=== PATIENT | male | born 1975 | race Caucasian/White ===

== ENCOUNTER 2020-01-20 10:33 | Inpatient (IN) | payer BC ==
[~2020-01-20] VITALS: Ht 167.6 cm; Wt 102.8 kg
[2020-01-20] VITALS (7 sets, daily range): BP systolic 97–135; BP diastolic 60–80
[2020-01-20] MEDS ORDERED: ETOMIDATE 20 MG/10 ML ONE (10:44)
[2020-01-20] MEDS ORDERED: SUCCINYLCHOLINE 20 MG/ML, 10ML ONE (10:44)
[2020-01-20] MEDS ORDERED: PROPOFOL 10 MG/ML, 100ML IV ONE (10:44)
--- NOTE | 2020-01-20 11:15 | NUR ---
PT BIB EMS FROM [place] FOR ALTERED MENTAL STATUS, JAUNDICE AND WEAKNESS. PT CHECKED INTO HOSPITAL IN [place] [facility], LEFT AMA THIS MORNING, WHEN HE GOT HOME HIS ROOMATE IMMEDIATELY TOOK HIM BACK TO THE ER BECAUSE HAS ALTERED. PT ARRIVED AND HE GOES BETWEEN A0X2 - AOX4. HE WILL SEEM TO BE MAKING SENSE WITH HIS CONVERSATION BUT THEN HE WILL GO OFF ON A TANGEANT -"I WAS WRESTLING LAST NIGHT AND I SAW THE SURGEON PUT THEM IN WRONG, WE WERE AT THE SCOOL" MD BEDSIDE FOR ASSESSMENT. EKG COMPLETE.
[2020-01-20] MEDS ORDERED: LORazepam 2 MG/ML, 1ML ONE ×2 (11:27→12:10)
[2020-01-20] MEDS ORDERED: LORazepam 2 MG/ML, 1ML IVPush ONE ×2 (11:30→12:30)
--- NOTE | 2020-01-20 11:48 | NUR ---
PT HAS TRIED TO CLIMB OUT OF BED 2-3 TIMES. MOTHER IS UNABLE TO STOP HIM. MD NOTIFIED. SEE MAR FOR INTERVENTIONS
[2020-01-20 12:05] LABS: MEAN CORPUSCULAR HEMOGLOBIN 36.5 pg (27.5-34.5); MEAN CORPUSCULAR HGB CONC 34.7 g/dL (33.2-36.2); MEAN PLATELET VOLUME 8.5 fL (7.4-10.4); PLATELET COUNT 81 x10^3/uL (130-400); RED BLOOD COUNT 2.08 x10^6/uL (4.38-5.82); RED CELL DISTRIBUTION WIDTH 23.4 % (9.4-14.8)
[2020-01-20 12:17] LABS: INTERNATIONAL NORMALIZED RATIO 2.02 (0.93-1.1); PROTHROMBIN TIME 21.3 Seconds (9.6-11.5)
[2020-01-20] MEDS ORDERED: HALOPERIDOL 5 MG/ML ONE ×2 (12:17→13:59)
[2020-01-20 12:18] LABS: ALBUMIN 3.5 g/dL (3.4-5.0); ANION GAP 8 mmol/L (5-15); CALCIUM 8.7 mg/dL (8.5-10.1); CHLORIDE 106 mmol/L (98-107)
--- NOTE | 2020-01-20 12:21 | NUR ---
PT AGITATED. 2 RNS TO HOLD HIM DOWN. NOTIFED. PT MEDICATED PER MAR
[2020-01-20 12:22] LABS: ALANINE AMINOTRANSFERASE 27 U/L (12-78); ALKALINE PHOSPHATASE 76 U/L (45-117)
[2020-01-20] MEDS ORDERED: HALOPERIDOL 5 MG/ML IM ONE (12:30)
[2020-01-20 12:41] LABS: MD YES
[2020-01-20 12:44] LABS: BAND#(MANUAL) 0.11 x10^3/uL; BANDS%(MANUAL) 2 % (0-7); BASOS#(MANUAL) 0.06 x10^3/uL (0-0.1); BASOS% (MANUAL) 1 % (0-1); EOS#(MANUAL) 0.06 x10^3/uL (0.0-0.4); EOS% (MANUAL) 1 % (1-7); LYMPH#(MANUAL) 1.25 x10^3/uL (1-3.4); LYMPHS% (MANUAL) 22 % (22-44); MONOS#(MANUAL) 0.57 x10^3/uL (0.3-2.7); MONOS% (MANUAL) 10 % (2-9); SEG#(MANUAL) 3.65 x10^3/uL (1.8-6.8); SEGS% (MANUAL) 64 % (42-75)
[2020-01-20 12:46] LABS: ANISOCYTOSIS 1+; HYPOCHROMIA 1+; POLYCHROMASIA 1+
[2020-01-20 12:49] LABS: BILIRUBIN,TOTAL 22.2 mg/dL (0.2-1.0)
--- NOTE | 2020-01-20 12:50 | NUR ---
PT TO GET BLOOD TRANSFUSION. PT RECEIVED 3 UNITS OF BLOOD 3 DAYS AGO IN [facility].
[2020-01-20 12:51] LABS: <PLATELET ESTIMATE> DECREASED; <PLT MORPHOLOGY> NORMAL PLT MORPH
[2020-01-20 13:08] LABS: CREATININE 0.84 mg/dL (0.7-1.3); TOTAL PROTEIN 6.5 g/dL (6.4-8.2)
--- NOTE | 2020-01-20 13:18 | NUR ---
BLOOD SLIP SENT TO [facility].
--- NOTE | 2020-01-20 13:18 | NUR ---
REPORT GIVEN TO STACY HORTA. SPOKE TO ABOUT POSSIBLE SEPSIS WORKUP. MD SAID NOT AT THIS MOMENT
--- NOTE | 2020-01-20 13:28 | NUR ---
PT TO CT AT THIS TIME, BLOOD RETURNED TO BB. WILL SEND NEW REQUEST WHEN PT RETURNS
--- NOTE | 2020-01-20 13:35 | NUR ---
break RN note: report taken from primary RN Maggie for meal break, pt in CT scan at this time.
--- NOTE | 2020-01-20 13:46 | NUR ---
pt back from CT, agitated. pt awake and alert, speech clear, pt redirectable at this time. all monitors in place.
--- NOTE | 2020-01-20 13:47 | NUR ---
blood requested from blood bank.
[2020-01-20] MEDS ORDERED: HALOPERIDOL 5 MG/ML IV ONE (14:00)
[2020-01-20] MEDS ORDERED: OMNIPAQUE 350 MG/ML, 100ML BOTTLE ONE (14:00)
--- NOTE | 2020-01-20 14:13 | NUR ---
REPORT FROM PAOLA RN, VERIFIED FIRST UNIT OF BLOOD, TRANSFUSION BEGAN. ERMD IN TO EVAL PT, PLAN TO INTUBATE. LAB ANALYST MADE AWARE
--- NOTE | 2020-01-20 14:19 | NUR ---
UPON PT RETURN FROM CT, PT AGITATED, PULLING AT LINES AND ATTEMPTING TO GET OUT OF BED. KOLE LOBO NOTIFIED, ORDER RECEIVED FOR HALDOL 5MG IV PUSH. HALDOL ADMIN VIA SLOW PUSH, PT REMAINS AGITATED AND PULLING AT LINES. ORDER RECEIVED FOR SOFT RESTRAINTS X 2 WHICH WERE APPLIED WITH SECURITY ASSIST. BLOOD RECEIVED FROM BLOOD BANK AND INITIATED, SIGNED OFF WITH STACY HORTA. KOLE LOBO AT BEDSIDE SHORTLY AFTER BLOOD TRANSFUSION INIATED, RECOMMENDS INTUBATION D/T COMPLEX MEDICAL STATE AND NECESSITY FOR NUMEROUS SEDATIVE MEDICATIONS. PT AWAKE, ALERT, RESPS EVEN AND UNLABORED, STILL AGITATED. PT'S MOTHER AT BEDSIDE, AGREEING TO PLAN OF CARE. PT MOVED TO TRAUMA 3, REPORT TO STACY BRADLEY WHO IS ASSUMING CARE.
--- NOTE | 2020-01-20 14:21 | NUR ---
PT TO TR 3 AT THIS TIME, REPORT TO MIRNA KUMAR
[2020-01-20] MEDS ORDERED: FENTANYL PF 100 MCG/2ML ONE (14:23)
[2020-01-20] MEDS ORDERED: FENTANYL PF 100 MCG/2ML IV ONE (14:30)
[2020-01-20] MEDS ORDERED: PANTOPRAZOLE 80 MG in SODIUM CHLORIDE 0.9% 100 ML IV SCH (14:30)
[2020-01-20] MEDS ORDERED: SUCCINYLCHOLINE 20 MG/ML, 10ML IVPush ONE (14:30)
[2020-01-20] MEDS ORDERED: PANTOPRAZOLE 80 MG in SODIUM CHLORIDE 0.9% 50 ML IVPB ONE (14:30)
[2020-01-20] MEDS ORDERED: PROPOFOL 100 ML IV PRN (14:30)
[2020-01-20] MEDS ORDERED: ETOMIDATE 20 MG/10 ML IV ONE (14:30)
[2020-01-20] MEDS ORDERED: THIAMINE 200 MG in SODIUM CHLORIDE 0.9% 50 ML IV ONE (14:30)
[2020-01-20] MEDS ORDERED: CEFTRIAXONE PMX 2GM/50ML 50 ML IVPB SCH (14:30)
[2020-01-20] MEDS ORDERED: MAGNESIUM SULFATE PMX 4GM/100M 100 ML IVPB ONE ×2 (15:00→17:00)
[2020-01-20] MEDS ORDERED: OCTREOTIDE 100MCG/ML, 1ML (0.1MG/ML) IV ONE (15:00)
[2020-01-20] MEDS ORDERED: BISACODYL 10 MG SUPP PR PRN (15:00)
[2020-01-20] MEDS ORDERED: MIDAZOLAM HCL 50 MG in SODIUM CHLORIDE 0.9% 40 ML IV PRN (15:00)
[2020-01-20] MEDS ORDERED: PHYTONADIONE 10 MG in SODIUM CHLORIDE 0.9% 50 ML IV ONE (15:00)
[2020-01-20] MEDS ORDERED: OCTREOTIDE 500 MCG in SODIUM CHLORIDE 0.9% 99 ML IV PRN (15:00)
[2020-01-20] MEDS ORDERED: POLYETHYLENE GLYCOL 17 GM PACKET PO PRN (15:00)
[2020-01-20] MEDS ORDERED: OXYcodone IR 5MG TABLET PO PRN (15:00)
[2020-01-20] MEDS ORDERED: ONDANSETRON 2MG/ML, 2ML IVPush PRN (15:00)
[2020-01-20] MEDS ORDERED: NOREPINEPHRINE 8 MG in SODIUM CHLORIDE 0.9% 242 ML IV PRN (15:00)
--- NOTE | 2020-01-20 15:33 | NUR ---
[facility] TELEPHONE HAND-OFF REPORT GIVEN TO STACY SHEARER.
[2020-01-20] MEDS: PROPOFOL 100 ML IV PRN ×2 (17:09→20:18)
[2020-01-20 17:25] LABS: BILIRUBIN, DIRECT 7.7 mg/dL (0.1-0.2)
[2020-01-20 17:28] LABS: BILIRUBIN,INDIRECT 13.6 mg/dL (0.0-2.0)
[2020-01-20 17:36] LABS: BILIRUBIN,TOTAL 21.3 mg/dL (0.2-1.0)
[2020-01-20] MEDS: CEFTRIAXONE PMX 1GM/50ML 50 ML IV SCH (17:43)
[2020-01-20] MEDS: PANTOPRAZOLE 80 MG in SODIUM CHLORIDE 0.9% 100 ML IV SCH (17:44)
[2020-01-20] MEDS: OCTREOTIDE 500 MCG in SODIUM CHLORIDE 0.9% 99 ML IV PRN (17:52)
[2020-01-20 20:48] LABS: BASOPHILS % (AUTO) 1 % (0-1); EOSINOPHILS % (AUTO) 1 % (1-7); LYMPHOCYTES % (AUTO) 25 % (22-44); MEAN CORPUSCULAR HGB CONC 34.9 g/dL (33.2-36.2); MEAN PLATELET VOLUME 8.9 fL (7.4-10.4); MONOCYTES % (AUTO) 22 % (2-9); NEUTROPHILS % (AUTO) 51 % (42-75); PLATELET COUNT 61 x10^3/uL (130-400); RED BLOOD COUNT 2.27 x10^6/uL (4.38-5.82); RED CELL DISTRIBUTION WIDTH 22.9 % (9.4-14.8)
[2020-01-20 20:55] LABS: MD NO
[2020-01-20] MEDS: LORazepam 2 MG/ML, 1ML IVPush PRN (21:04)
[2020-01-21] VITALS (8 sets, daily range): BP systolic 86–138; BP diastolic 52–92
[2020-01-21] MEDS: PROPOFOL 100 ML IV PRN ×6 (00:13→23:36)
[2020-01-21] MEDS: PANTOPRAZOLE 80 MG in SODIUM CHLORIDE 0.9% 100 ML IV SCH ×3 (03:09→23:37)
[2020-01-21] MEDS: OCTREOTIDE 500 MCG in SODIUM CHLORIDE 0.9% 99 ML IV PRN ×3 (03:09→23:37)
[2020-01-21] MEDS: LORazepam 2 MG/ML, 1ML IVPush PRN (04:32)
[2020-01-21 05:04] LABS: BASOPHILS % (AUTO) 1 % (0-1); EOSINOPHILS % (AUTO) 1 % (1-7); LYMPHOCYTES % (AUTO) 18 % (22-44); MEAN CORPUSCULAR HEMOGLOBIN 36.5 pg (27.5-34.5); MEAN CORPUSCULAR HGB CONC 35.8 g/dL (33.2-36.2); MEAN PLATELET VOLUME 8.9 fL (7.4-10.4); MONOCYTES % (AUTO) 15 % (2-9); NEUTROPHILS % (AUTO) 64 % (42-75); PLATELET COUNT 81 x10^3/uL (130-400); RED BLOOD COUNT 2.38 x10^6/uL (4.38-5.82); RED CELL DISTRIBUTION WIDTH 22.7 % (9.4-14.8)
[2020-01-21 05:08] LABS: MD NO
[2020-01-21 05:14] LABS: INTERNATIONAL NORMALIZED RATIO 1.72 (0.93-1.1); PROTHROMBIN TIME 18.1 Seconds (9.6-11.5)
[2020-01-21 05:15] LABS: ANION GAP 7 mmol/L (5-15); CALCIUM 8.1 mg/dL (8.5-10.1); CHLORIDE 107 mmol/L (98-107)
[2020-01-21 05:27] LABS: ALKALINE PHOSPHATASE 76 U/L (45-117)
[2020-01-21 06:39] LABS: ALANINE AMINOTRANSFERASE 27 U/L (12-78); CREATININE 0.87 mg/dL (0.7-1.3)
[2020-01-21 06:40] LABS: TOTAL PROTEIN 6.1 g/dL (6.4-8.2)
[2020-01-21 06:42] LABS: BILIRUBIN,TOTAL 23.1 mg/dL (0.2-1.0)
[2020-01-21] MEDS: SENNA/DOCUSATE TABLET PO SCH (10:11)
[2020-01-21] MEDS: morphine SULFATE 10 MG/ML, 1ML IVPush PRN (14:20)
[2020-01-21] MEDS: CEFTRIAXONE PMX 1GM/50ML 50 ML IV SCH (14:47)
--- NOTE | 2020-01-21 15:08 | NUR ---
TF GOAL when ordered: w/ propofol: VITAL AF 1.2 @ 50ml/hr off propofol: VITAL AF 1.2 @ 55ML/HR
[2020-01-22] MEDS: PROPOFOL 100 ML IV PRN ×5 (02:23→23:48)
[2020-01-22 04:00] VITALS: BP 101/48
[2020-01-22 05:51] LABS: CHLORIDE 109 mmol/L (98-107)
[2020-01-22 05:56] LABS: ANION GAP 5 mmol/L (5-15); CALCIUM 7.7 mg/dL (8.5-10.1)
[2020-01-22] MEDS: morphine SULFATE 10 MG/ML, 1ML IVPush PRN (05:58)
[2020-01-22 06:00] LABS: INTERNATIONAL NORMALIZED RATIO 1.87 (0.93-1.1); PROTHROMBIN TIME 19.7 Seconds (9.6-11.5)
[2020-01-22 06:09] LABS: BASOPHILS % (AUTO) 1 % (0-1); EOSINOPHILS % (AUTO) 3 % (1-7); LYMPHOCYTES % (AUTO) 18 % (22-44); MEAN CORPUSCULAR HEMOGLOBIN 36.5 pg (27.5-34.5); MEAN CORPUSCULAR HGB CONC 35.2 g/dL (33.2-36.2); MEAN PLATELET VOLUME 8.2 fL (7.4-10.4); MONOCYTES % (AUTO) 18 % (2-9); NEUTROPHILS % (AUTO) 60 % (42-75); PLATELET COUNT 55 x10^3/uL (130-400); RED BLOOD COUNT 2.19 x10^6/uL (4.38-5.82); RED CELL DISTRIBUTION WIDTH 24.5 % (9.4-14.8)
[2020-01-22] MEDS ORDERED: MAGNESIUM SULFATE PMX 2GM/50ML 50 ML IV ONE (07:00)
[2020-01-22] MEDS: PANTOPRAZOLE 80 MG in SODIUM CHLORIDE 0.9% 100 ML IV SCH (07:19)
[2020-01-22] MEDS: OCTREOTIDE 500 MCG in SODIUM CHLORIDE 0.9% 99 ML IV PRN (07:20)
[2020-01-22 07:23] LABS: MD SCAN
[2020-01-22 07:47] LABS: ALBUMIN 2.6 g/dL (3.4-5.0); ANION GAP 4 mmol/L (5-15); CALCIUM 7.9 mg/dL (8.5-10.1); CHLORIDE 110 mmol/L (98-107)
[2020-01-22 07:49] LABS: ALKALINE PHOSPHATASE 64 U/L (45-117)
[2020-01-22 07:55] LABS: BILIRUBIN,TOTAL 24.5 mg/dL (0.2-1.0)
[2020-01-22 08:01] LABS: ALANINE AMINOTRANSFERASE 29 U/L (12-78)
[2020-01-22 08:04] LABS: CREATININE 0.89 mg/dL (0.7-1.3); TOTAL PROTEIN 5.2 g/dL (6.4-8.2)
[2020-01-22] MEDS ORDERED: LACTULOSE 20 GM/30 ML UDC PO SCH (09:00)
[2020-01-22] MEDS: SENNA/DOCUSATE TABLET PO SCH (09:09)
[2020-01-22] MEDS: MIDODRINE 5 MG TABLET PO SCH ×3 (09:12→21:25)
[2020-01-22] MEDS: CEFTRIAXONE PMX 1GM/50ML 50 ML IV SCH (15:16)
[2020-01-22] MEDS: PANTOPRAZOLE 40 MG IV IVPush SCH (21:25)
[2020-01-23] MEDS: PROPOFOL 100 ML IV PRN ×4 (02:31→14:44)
[2020-01-23 04:18] VITALS: BP 110/57
[2020-01-23] MEDS: SENNA/DOCUSATE TABLET PO SCH (09:41)
[2020-01-23] MEDS: PANTOPRAZOLE 40 MG IV IVPush SCH ×2 (09:41→20:54)
[2020-01-23] MEDS: MIDODRINE 5 MG TABLET PO SCH ×3 (09:41→20:54)
[2020-01-23] MEDS: CEFTRIAXONE PMX 1GM/50ML 50 ML IV SCH (14:28)
[2020-01-24] MEDS: PROPOFOL 100 ML IV PRN ×4 (01:49→13:13)
[2020-01-24 04:03] VITALS: BP 121/58
[2020-01-24] MEDS: SENNA/DOCUSATE TABLET PO SCH (08:50)
[2020-01-24] MEDS: PANTOPRAZOLE 40 MG IV IVPush SCH (08:50)
[2020-01-24] MEDS: MIDODRINE 5 MG TABLET PO SCH (08:50)
[2020-01-24] MEDS: CEFTRIAXONE PMX 1GM/50ML 50 ML IV SCH (15:00)
[2020-01-24] MEDS ORDERED: MORPHINE SULFATE 4 MG/ML, 1ML ONE (15:15)
[2020-01-24] MEDS ORDERED: LORazepam 2 MG/ML, 1ML IV PRN (16:00)
[2020-01-24] MEDS ORDERED: ONDANSETRON 2MG/ML, 2ML IV PRN (16:00)
[2020-01-24] MEDS ORDERED: LORazepam 2 MG/ML, 1ML IV ONE (16:00)
[2020-01-24] MEDS ORDERED: DEXTROSE 5% IV PRN (16:00)
[2020-01-24] MEDS ORDERED: ATROPINE OPHTH SOLN 1%, 5ML PO PRN (16:00)
[2020-01-24] MEDS ORDERED: MORPHINE SULFATE IV PRN (16:00)
[2020-01-24] MEDS ORDERED: MORPHINE SULFATE 4 MG/ML, 1ML IV ONE (16:00)
[2020-01-24] MEDS ORDERED: SCOPOLAMINE 1MG PATCH TD SCH (16:00)
[2020-01-24] MEDS: DEXTROSE 5% IV PRN ×2 (16:47→23:45)
[2020-01-24] MEDS: MORPHINE SULFATE IV PRN ×2 (16:47→23:45)
[2020-01-24] MEDS: ATROPINE OPHTH SOLN 1%, 5ML PO PRN ×3 (21:09→23:41)
[2020-01-25] MEDS: ATROPINE OPHTH SOLN 1%, 5ML PO PRN ×3 (01:18→05:10)
== END 2020-01-25 10:00 | disposition expired | DRG 207 ==
LOC: ED 10:57 → EDIP 14:35 → CCU 16:15 → CSU 21:55 → CCU 01-23 05:55 → 4NW 01-24 17:57
PROVIDERS: ADMIT Internal Medicine; ATTEND Internal Medicine
PROC: 5A1955Z Respiratory Ventilation, Greater than 96 Consecutive Hours (ICD-10-PCS; principal; 2020-01-20)
PROC: 30233N1 Transfusion of Nonautologous Red Blood Cells into Peripheral Vein, Percutaneous Approach (ICD-10-PCS; 2020-01-20)
PROC: 30233L1 Transfusion of Nonautologous Fresh Plasma into Peripheral Vein, Percutaneous Approach (ICD-10-PCS; 2020-01-20)
PROC: 02H633Z Insertion of Infusion Device into Right Atrium, Percutaneous Approach (ICD-10-PCS; 2020-01-21)
PROC: 02HV33Z Insertion of Infusion Device into Superior Vena Cava, Percutaneous Approach (ICD-10-PCS; 2020-01-22)
DX: J96.01 Acute respiratory failure with hypoxia (principal); G93.41 Metabolic encephalopathy; J18.9 Pneumonia, unspecified organism; K85.90 Acute pancreatitis without necrosis or infection, unspecified; D62 Acute posthemorrhagic anemia; D68.69 Other thrombophilia; F10.239 Alcohol dependence with withdrawal, unspecified; G93.49 Other encephalopathy; J98.11 Atelectasis; K76.6 Portal hypertension; K92.0 Hematemesis; Z99.11 Dependence on respirator [ventilator] status; K70.40 Alcoholic hepatic failure without coma; D53.9 Nutritional anemia, unspecified; D69.59 Other secondary thrombocytopenia; E03.9 Hypothyroidism, unspecified; E83.42 Hypomagnesemia; E87.6 Hypokalemia; F17.200 Nicotine dependence, unspecified, uncomplicated; F32.9 Major depressive disorder, single episode, unspecified; F41.1 Generalized anxiety disorder; I12.9 Hypertensive chronic kidney disease with stage 1 through stage 4 chronic kidney disease, or unspecified chronic kidney disease; I48.91 Unspecified atrial fibrillation; K70.30 Alcoholic cirrhosis of liver without ascites; N18.9 Chronic kidney disease, unspecified; S09.90XA Unspecified injury of head, initial encounter; W18.39XA Other fall on same level, initial encounter; S80.12XA Contusion of left lower leg, initial encounter; Z51.5 Encounter for palliative care; Z66 Do not resuscitate; Z80.9 Family history of malignant neoplasm, unspecified; Z91.81 History of falling; Y93.89 Activity, other specified; Y92.89 Other specified places as the place of occurrence of the external cause; Y99.8 Other external cause status
CPT/HCPCS: 36415; 36573; 36600; 70450; 71045; 74174; 74177; 76700; 80048; 80053; 80307; 82140; 82247; 82248; 82533; 82550; 82803; 83010; 83605; 83615; 83690; 83735; 84100; 84443; 85018; 85025; 85610; 85730; 86850; 86900; 86923; 87070; 87081; 87205; 93005; 94002; 94003; 99291; G0378; J0696; J2354; J2704; J3010; J3411; J3430; Q9967; C1751; C9113; J0330; J1630; J2060; J2270; J3475; J7050; P9016; P9017